=== PATIENT | male | born 1940 | race Caucasian/White ===

== ENCOUNTER 2016-05-19 10:28 | Day surgery (SDC) | payer MEDICARE, OTHER ==
[~2016-05-19] VITALS: Ht 180.3 cm; Wt 95.2 kg
[~2016-05-19 10:28] MED LIST: FLUT9.9S NS; LISI1TAB9 PO
[2016-05-19] MEDS ORDERED: 0.9% Sodium Chloride 1,000 ML IV PRN (10:44)
[2016-05-19] MEDS ORDERED: Sodium Chloride LOK Flush 10 mL Syringe IV PRN (10:45)
[2016-05-19] MEDS ORDERED: fentaNYL-PF 50 mCg/mL 2 mL Inj IVPUSH PRN (10:45)
[2016-05-19 10:50] VITALS: BP 138/76; PULSE 54; RESP 14; O2SAT 99
[2016-05-19 12:53] VITALS: BP 115/76; PULSE 53; RESP 16; O2SAT 96
--- NOTE | 2016-05-19 12:54 | PCM.ENDCOL ---
Colonoscopy Date of Service: May 19, 2016 Physician Dickson Cody MD Pre Procedure Diagnosis: History of polyp Post Procedure Dx & Findings: Polyp hemorrhoids diverticuli Procedure Colonoscopy PROCEDURE IN DETAIL: Prep adequate Withdrawal time 15 minutes After unremarkable rectal examination the Olympus video colonoscope was inserted patient's anal canal and was advanced to cecum. Landmarks were identified including the ileocecal valve and appendiceal orifice. Scope was withdrawn systematically. Visualized colonic mucosa showed healthy shiny mucosa with normal healthy-appearing vasculature. In the ascending colon, there was a 2 mm polyp which was removed completely using cold snare. In the transverse colon there was a 1 mm polyp which was removed completely using cold forceps. In the rectum there was a 1 mm polyp which was again removed completely using cold forceps. Starting from the distal sigmoid colon into the ascending colon, there were several small to large diverticuli mostly in the sigmoid colon but scattered throughout the colon up to the proximal ascending colon. In the rectum retroflexion was done which showed hemorrhoids. Anal canal was inspected carefully on the way out and hemorrhoids noted. Impression Polyps 3 status post complete removal Diverticuli History of polyps Hemorrhoids Recommendation Repeat colonoscopy 3 years Diverticular diet Presedation Assessment Risks and Benefits Informed consent was obtained from the patient after all risks and benefits including but not limited to drug reaction, infection, pain, bleeding, perforation, as well as alternatives were discussed. Patient monitoring Continuous pulse oximetry, cardiac monitoring, blood pressure monitoring, IV access, and oxygen at 2L per nasal cannula. Periprocedural Fentanyl: Fentanyl 125mcg Incrementally Midazolam: Midazolam 5mg Incrementally Complications There were no periprocedural complications identified. Post Procedure Plan Post Procedure Recommendations 1. Restrict activities today. 2. Resume normal activities in the morning. 3. Resume medications. 4. Patient informed of normal post procedure side effects as bloating, drowsiness, blood streaking in the stool. 5. average risk CRCS. If colon polyps come back as: -Hyperplastic- can repeat colonoscopy in 10 years -Tubular adenoma- repeat colonoscopy in 5 years -Tubulovillous/villous adenoma- repeat colonoscopy in 3 years -If any dysplasia- return to clinic as soon as possible 6. Please don't hesitate to call me with any questions. Dickson Cody MD May 19, 2016 12:54
[2016-05-19 13:03] VITALS: BP 126/75; PULSE 57; RESP 16; O2SAT 97
[2016-05-19 13:06] VITALS: BP 133/94; PULSE 63; RESP 16; O2SAT 97
--- NOTE | 2016-05-20 14:51 | PATH ---
SURGICAL PATHOLOGY Attending Physician:Dickson Cody M.D. CASE STATUS: Signed Out PATIENT NAME: ALDO DE LCID V. PID: [id number] : 1940 DATE COLLECTED:05/19/2016 20:31 SPECIMEN: 1: Colon, Biopsy 2: Colon, Biopsy 3: Rectum, Biopsy CLINICAL HISTORY: 1). ASCENDING POLYP 2). TRANSVERSE POLYP 3). RECTUM POLYP FINAL DIAGNOSIS: 1. Ascending Colon, Polyp, Biopsy: Sessile serrated adenoma. 2. Transverse Colon, Polyp, Biopsy: Tubular adenoma. 3. Rectum, Polyp, Biopsy: Tubular adenoma. ICD10 D12.2, D12.3, D12.8 GROSS DESCRIPTION: The specimen is received in three formalin filled containers labeled with the patient's name. 1). The specimen is sublabeled "ascending polyp" and consists of 2 portions of tissue which aggregate to 0.3 x 0.3 x 0.2 CM. The specimen is entirely submitted in cassette 1A. 2). The specimen is sublabeled "transverse polyp" and consists of a 0.3 x 0.2 x 0.2 CM torsion of tissue which is entirely submitted in cassette 2A. 3). The specimen is sublabeled "rectum polyp" and consists of a 0.3 x 0.3 x 0.3 CM portion of tissue which is entirely submitted in cassette 3A. 05/19/2016 [facility] ICD-9 CODES: CPT CODES: 1: 17113 2: 33962 3: 81421 Electronically Signed Out Traci Beckett MD [facility] Pathology [facility] [facility], [place] [address] Technical component performed at [facility], [facility] [address], [place], [address]
== END 2016-05-19 23:59 | disposition home or self-care (01) ==
LOC: END 10:28
PROVIDERS: ATTEND Internal Medicine
DX: Z12.11 Encounter for screening for malignant neoplasm of colon (principal); Z86.010 Personal history of colon polyps; D12.2 Benign neoplasm of ascending colon; D12.3 Benign neoplasm of transverse colon; D12.8 Benign neoplasm of rectum; K57.30 Diverticulosis of large intestine without perforation or abscess without bleeding; K64.9 Unspecified hemorrhoids